=== PATIENT | female | born 1965 | race Hispanic/Latino ===

== ENCOUNTER 2023-01-29 20:47 | Emergency (ER) | payer OTHER ==
[~2023-01-29] VITALS: Ht 175.3 cm; Wt 113.9 kg
[~2023-01-29 20:47] MED LIST: ASPIRIN325 MG PO; AUGMENTIN 875-1 EACH PO; CIPRO500 MG PO; CLARITIN10 M1 PO; CLEOCIN HCL150 MG PO; FERROUS SULFAT325 MG PO; GLUCOTROL XL10 MG PO; HYDRALAZINE HCL50 MG PO; LASIX40 MG PO; LEVAQUIN500 MG PO; LISINOPRIL10 MG PO; LOPRESSOR25 MG PO; NORVASC5 MG PO; PROTONIX IV40 MG PO; SODIUM BICARBO650 MG PO
[2023-01-29 20:53] VITALS: O2SAT 97
[2023-01-29] MEDS ORDERED: ULTRAM 50MG50 MG PO (21:59)
[2023-01-29] MEDS ORDERED: TRAMADOL HCL 50 MG TAB ONE (21:59)
[2023-01-29] MEDS ORDERED: TRAMADOL HCL 50 MG TAB PO ONE (22:00)
== END 2023-01-29 22:17 | disposition home or self-care (01) ==
LOC: ER 20:55
DX: S60.212A Contusion of left wrist, initial encounter (principal); W18.39XA Other fall on same level, initial encounter; Y93.01 Activity, walking, marching and hiking; Y92.89 Other specified places as the place of occurrence of the external cause; I12.9 Hypertensive chronic kidney disease with stage 1 through stage 4 chronic kidney disease, or unspecified chronic kidney disease; E11.22 Type 2 diabetes mellitus with diabetic chronic kidney disease; N18.9 Chronic kidney disease, unspecified; Z99.2 Dependence on renal dialysis; Z95.5 Presence of coronary angioplasty implant and graft
CPT/HCPCS: 99283